=== PATIENT | female | born 1990 | race Caucasian/White ===

== ENCOUNTER 2023-08-13 03:59 | Emergency (ER) | payer OTHER, SELFPAY ==
--- NOTE | ~2023-08-13 | XR_ITS ---
Clinical Indication: Shortness of breath PA and lateral views of the chest: Comparison: None Findings: The lungs are clear, without evidence of focal consolidation or pleural effusion. Cardiome diastinal silhouette is within normal limits. Bones and soft tissues are unremarkable. Impression: Normal chest. Reviewed, dictated and finalized at [facility]. Impression: Normal chest.
[2023-08-13 04:02] VITALS: BP 106/79; PULSE 95; RESP 18; TEMP 36.4; O2SAT 100
--- NOTE | 2023-08-13 04:18 | ECG_ITS ---
SEE SCANNED COPY FOR CONFIRMED REPORT. MTDD
[2023-08-13 05:15] VITALS: BP 103/78; PULSE 92; RESP 15; O2SAT 98
[2023-08-13 05:17] VITALS: O2SAT 99
--- NOTE | 2023-08-13 06:05 | ED.GENADULT ---
HPI - General Adult General Chief complaint: Asthma Stated complaint: asthma Time Seen by Provider: 08/13/23 05:43 History of Present Illness HPI narrative: Patient is a year old female who presents emergency department with chief complaint of shortness of breath. The patient has prior history of asthma started having severe wheezing this morning and reports this is worse than normal. The patient received Decadron and received a nebulizer treatment prior to arrival in the emergency department and feels much better. Related Data Allergies Allergy/AdvReac Type Severity Reaction Status Date / Time No Known Allergies Allergy Verified 08/13/23 06:12 Review of Systems Review of Systems: A 10 system review of systems was completed on the patient and is negative except for what is stated in the HPI. Nursing and ancillary documentation was reviewed. Exam Narrative: GENERAL: Well-appearing, well-nourished, and in no acute distress. HEAD: Normocephalic, atraumatic. EYES: PERRLA and EOMI. ENT: Nares clear, no rhinorrhea or epistaxis. Mucous membranes moist. NECK: Supple. CHEST: Clear to auscultation. No respiratory distress. HEART: Regular rate and rhythm. No murmur heard. Normal peripheral pulses. ABDOMEN: Soft, nontender, nondistended, normal active bowel sounds. EXTREMITIES: Normal range of motion. No edema. SKIN: Warm, dry, no rash. NEURO: No focal deficits. Alert and oriented x3. PSYCH: Normal mood and affect. Course Vital Signs Vital signs: Vital Signs Temperature 36.4 C L 08/13/23 04:02 Pulse Rate 95 08/13/23 04:02 Respiratory Rate 18 08/13/23 04:02 Blood Pressure 106/79 08/13/23 04:02 Pulse Oximetry 100 08/13/23 04:02 Oxygen Delivery Room Air 08/13/23 04:02 Temperature 36.4 C L 08/13/23 04:02 Pulse Rate 92 08/13/23 05:15 Respiratory Rate 15 08/13/23 05:15 Blood Pressure 103/78 08/13/23 05:15 Pulse Oximetry 99 08/13/23 05:17 Oxygen Delivery Room Air 08/13/23 05:17 Medical Decision Making [facility] Narrative Medical decision making narrative: Differential diagnosis includes pneumonia, pneumothorax, asthma exacerbation Chest x-ray showed no focal infiltrate no evidence of pneumothorax Patient is already feeling better after receiving steroids and a nebulizer treatment by EMS Vital Signs Vital Signs: Vital Signs Temperature 36.4 C L 08/13/23 04:02 Pulse Rate 95 08/13/23 04:02 Respiratory Rate 18 08/13/23 04:02 Blood Pressure 106/79 08/13/23 04:02 Pulse Oximetry 100 08/13/23 04:02 Oxygen Delivery Room Air 08/13/23 04:02 Temperature 36.4 C L 08/13/23 04:02 Pulse Rate 92 08/13/23 05:15 Respiratory Rate 15 08/13/23 05:15 Blood Pressure 103/78 08/13/23 05:15 Pulse Oximetry 99 08/13/23 05:17 Oxygen Delivery Room Air 08/13/23 05:17 Discharge Plan Discharge Clinical Impression: Asthma with acute exacerbation Patient Disposition: Home, Self-Care Condition: Stable Instructions: Antibiotic Form, Asthma (ED) Prescriptions: New prednisone 20 mg tablet 40 mg PO DAILY 5 Days Qty: 10 0RF Follow-up/Referrals: Nate,João Rogers MD [Primary Care Provider] - Time of Disposition: 06:12
[2023-08-13] MEDS: IPRATROPIUM 0.5 MG/ALBUTEROL SULFATE 2.5 MG AMPUL.NEB 3 ML INHALATION (06:20)
[2023-08-13 06:22] VITALS: PULSE 70; RESP 18
[2023-08-13 06:28] VITALS: PULSE 73; RESP 18
[2023-08-13 06:54] VITALS: O2SAT 100
== END 2023-08-13 06:55 | disposition home or self-care (01) ==
PROVIDERS: Emergency Provider Emergency Medicine; PCP Family Medicine
DX: J45.901 Unspecified asthma with (acute) exacerbation (principal); R94.31 Abnormal electrocardiogram [ECG] [EKG]
CPT/HCPCS: 71046; 93005; 94640; 99283

== ENCOUNTER 2023-11-28 14:35 | Outpatient (CLI) | payer OTHER, SELFPAY ==
--- NOTE | 2023-11-29 16:02 | WPDSIXMINUTE ---
Six Minute Walk Procedure Procedure Performed Pulmonary Stress Test (6 min walk) Six Minute Walk Six Minute Walk: This is a 6 minute walk test. The test was performed and interpreted in accordance with the 2014 ERS/ATS task force guidelines. Findings: The patient's resting room air oxygen saturation measured by pulse oximetry was 96% and heart rate was 92 bpm. Patient ambulated for 457 meters and oxygen saturation remained 94 to 95%. Heart rate at the end of the study was 123 bpm. The patient did not qualify for supplemental oxygen at rest or with ambulation. There are no prior studies for comparison.
--- NOTE | 2023-11-29 16:03 | WPDPFTINT ---
PFT Procedure Performed PFT Procedure Performed Plethysmography (Lung Vol) Diffusing Cap (DLCO) Flow Vol Loop Spirometry w/o Bronchodil PFT Interpretation This is a pulmonary function test with spirometry, plethysmography and diffusing capacity. The test was performed and results interpreted in accordance with the 2019 and 2005 ATS/ERS Task Force guidelines respectively using the Global Lung Function Initiative-2012 reference equations. Patient demonstrated good effort and cooperation. Reproducibility criteria were met. The quality of the spirometry maneuver was Grade C. Findings: Spirometry: There is decreased maximal expiratory airflow at all lung volumes. The contour the inspiratory flow tracing is normal. The FVC is 3.13 L, 96% predicted. The FEV1 is 2.14 L, 77% predicted. The FEV1: FVC ratio 68%. Plethysmography: The total lung capacity is 5.12 L, 115% predicted. The functional residual capacity is 2.65 L, 111% predicted. The residual volume is 1.98 L, 166% predicted. The residual volume: Total lung capacity ratio is 39%. Plethysmography: The DLCO unadjusted for hemoglobin and carboxyhemoglobin is 21.1, 91% predicted. The diffusing capacity adjusted for alveolar volume is 4.98, 98% predicted. Impression: There is a mild obstructive abnormality. The increase in residual volume to total lung volume ratio is consistent with hyperinflation from an obstructive abnormality. The diffusing capacity is normal. There are no prior studies for comparison
== END 2023-11-28 14:36 | disposition home or self-care (01) ==
LOC: ANHPFT 14:36
PROVIDERS: PCP Family Medicine; Visit Provider Internal Medicine Pulmonary Disease
DX: J45.40 Moderate persistent asthma, uncomplicated (principal); Z78.9 Other specified health status; Z82.5 Family history of asthma and other chronic lower respiratory diseases
CPT/HCPCS: 94375; 94618; 94726; 94729